=== PATIENT | female | born 2005 | race American Indian/Alaskan Native ===

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

== ENCOUNTER 2025-02-22 22:08 | Emergency (ER) | payer MEDICAID ==
[2025-02-22 22:45] LABS: BASOPHILS PERCENT AUTO 0.2 % (0.0-1.0); EOSINOPHILS PERCENT AUTO 0.5 % (1.0-3.0); HEMATOCRIT 38.1 % (37.0-47.0); HEMOGLOBIN 12.8 g/dL (12.0-16.0); LYMPHOCYTES PERCENT AUTO 23.4 % (20.5-50.1); MEAN CORPUSCULAR HEMOGLOBIN 30.3 pg (27.0-34.0); MEAN CORPUSCULAR HGB CONC 33.6 g/dL (33.0-35.0); MEAN CORPUSCULAR VOLUME 90.1 fL (80-100); MONOCYTES PERCENT AUTO 5.1 % (2-8); NEUTROPHILS PERCENT AUTO 70.8 % (42.2-75.2); PLATELET COUNT,PLT 309 10^3/uL (150-450); RED BLOOD CELL COUNT 4.23 10^6/uL (4.2-5.4); WHITE BLOOD CELL COUNT,WBC 11.2 10^3/uL (5.0-10.0)
[2025-02-22 22:54] LABS: APPEARANCE,URINE SLIGHTLY CLOUDY (CLEAR); BILIRUBIN,URINE NEGATIVE (NEGATIVE); COLOR,URINE YELLOW (YELLOW); GLUCOSE,URINE NEGATIVE (NEGATIVE); KETONES,URINE 15 (NEGATIVE); LEUKOCYTE ESTERASE,URINE NEGATIVE (NEGATIVE); NITRITE,URINE NEGATIVE (NEGATIVE); OCCULT BLOOD,URINE NEGATIVE (NEGATIVE); PH,URINE 7.5 (5.0-9.0); PROTEIN,URINE NEGATIVE (NEGATIVE); UROBILINOGEN,URINE 0.2 mg/dL (0.2-1.0)
[2025-02-22 23:05] LABS: ALBUMIN 4.1 g/dL (3.4-5.0); ANION GAP 11.9 mEq/L (7-13); BILIRUBIN TOTAL 0.3 mg/dL (0.2-1.0); BUN/CREATININE RATIO 39.5 (No establ ref range); CALCIUM 9.3 mg/dL (8.5-10.1); CREATININE 0.43 mg/dL (0.55-1.02); EST CRCL DRUG DOSING (CG) 212.28 mL/min; POTASSIUM,K 3.9 mmol/L (3.5-5.1); PROTEIN TOTAL,TP 8.1 g/dL (6.4-8.2)
[2025-02-22 23:08] LABS: LACTIC ACID 0.6 mmol/L (0.4-2.0)
[2025-02-22] MEDS: Iopamidol 612 MG/ML 100 ML Bottle IVPUSH ONE (23:38)
[2025-02-23] MEDS: Sodium Chloride 0.9% 1,000 ML IV ONE (00:27)
[2025-02-23 01:21] VITALS: BP 110/56; PULSE 86
== END 2025-02-23 01:03 | disposition home or self-care (01) ==
LOC: DL.ED 22:08
DX: R11.10 Vomiting, unspecified (principal); R10.9 Unspecified abdominal pain; I10 Essential (primary) hypertension; E10.9 Type 1 diabetes mellitus without complications; F17.210 Nicotine dependence, cigarettes, uncomplicated; Z79.4 Long term (current) use of insulin; Z79.899 Other long term (current) drug therapy
CPT/HCPCS: 36415; 74018; 74177; 80053; 81003; 81025; 83605; 83690; 85025; 96360; 99283; 99284; J7030; Q9967

== ENCOUNTER 2025-03-07 19:20 | Emergency (ER) | payer MEDICAID ==
[2025-03-07 19:44] VITALS: BP 123/80; PULSE 103
[2025-03-07 20:03] LABS: BASOPHILS PERCENT AUTO 0.2 % (0.0-1.0); HEMATOCRIT 38.1 % (37.0-47.0); HEMOGLOBIN 12.2 g/dL (12.0-16.0); LYMPHOCYTES PERCENT AUTO 34.6 % (20.5-50.1); MEAN CORPUSCULAR VOLUME 90.7 fL (80-100); MONOCYTES PERCENT AUTO 7.5 % (2-8); NEUTROPHILS PERCENT AUTO 56.7 % (42.2-75.2); PLATELET COUNT,PLT 332 10^3/uL (150-450); WHITE BLOOD CELL COUNT,WBC 8.7 10^3/uL (5.0-10.0)
[2025-03-07] MEDS: Metoclopramide 10 MG Tab PO ONE (20:10)
[2025-03-07 20:24] LABS: ALBUMIN 3.9 g/dL (3.4-5.0); ANION GAP 11.6 mEq/L (7-13); BILIRUBIN TOTAL 0.2 mg/dL (0.2-1.0); BUN/CREATININE RATIO 25.9 (No establ ref range); CALCIUM 9.8 mg/dL (8.5-10.1); CREATININE 0.58 mg/dL (0.55-1.02); EST CRCL DRUG DOSING (CG) 146.05 mL/min; POTASSIUM,K 4.6 mmol/L (3.5-5.1); PROTEIN TOTAL,TP 7.7 g/dL (6.4-8.2)
[2025-03-07 20:29] LABS: APPEARANCE,URINE CLEAR (CLEAR); BILIRUBIN,URINE NEGATIVE (NEGATIVE); COLOR,URINE YELLOW (YELLOW); GLUCOSE,URINE NEGATIVE (NEGATIVE); KETONES,URINE NEGATIVE (NEGATIVE); LEUKOCYTE ESTERASE,URINE NEGATIVE (NEGATIVE); NITRITE,URINE NEGATIVE (NEGATIVE); OCCULT BLOOD,URINE TRACE-INTACT (NEGATIVE); PROTEIN,URINE NEGATIVE (NEGATIVE); UROBILINOGEN,URINE 0.2 mg/dL (0.2-1.0)
[2025-03-07 20:33] LABS: BACTERIA,URINE MODERATE /HPF (0-FEW/HPF); EPITHELIAL CELLS,URINE FEW /HPF (NOT SEEN); RBC,URINE 0-5 /HPF (0-5); WBC,URINE 0-5 /HPF (0-5/HPF)
== END 2025-03-07 22:14 | disposition home or self-care (01) ==
LOC: DL.ED 19:20
DX: R06.6 Hiccough (principal); R11.2 Nausea with vomiting, unspecified; R10.32 Left lower quadrant pain; R10.84 Generalized abdominal pain; I10 Essential (primary) hypertension; E10.9 Type 1 diabetes mellitus without complications; Z79.4 Long term (current) use of insulin; Z79.899 Other long term (current) drug therapy
CPT/HCPCS: 36415; 74019; 80053; 81001; 81025; 83735; 85025; 99284; A9270; 99283

== ENCOUNTER 2025-05-28 13:58 | Emergency (ER) | payer MEDICAID ==
[2025-05-28] MEDS ORDERED: Sodium Chloride 0.9% 10 ML Syringe FLUSH PRN (14:10)
[2025-05-28 14:30] LABS: O2 DELIVERY DEVICE ROOM AIR
[2025-05-28 14:32] LABS: BASOPHILS PERCENT AUTO 0.2 % (0.0-1.0); EOSINOPHILS PERCENT AUTO 1.3 % (1.0-3.0); LYMPHOCYTES PERCENT AUTO 21.9 % (20.5-50.1); MONOCYTES PERCENT AUTO 5.4 % (2-8); NEUTROPHILS PERCENT AUTO 71.2 % (42.2-75.2); PLATELET COUNT,PLT 338 10^3/uL (150-450); RED BLOOD CELL COUNT 3.82 10^6/uL (4.2-5.4); WHITE BLOOD CELL COUNT,WBC 9.4 10^3/uL (5.0-10.0)
[2025-05-28 14:38] LABS: APPEARANCE,URINE CLEAR (CLEAR); GLUCOSE,URINE 500 (NEGATIVE); OCCULT BLOOD,URINE TRACE-INTACT (NEGATIVE)
[2025-05-28 14:44] LABS: BICARBONATE,VENOUS 26 mmol/l (19-25); O2 SATURATION VENOUS 83.8 % (60-80); PCO2 VENOUS 50 mmHg (41-51); PH,VENOUS 7.33 (7.31-7.41); PO2 VENOUS 56 mmHg (35-42)
[2025-05-28 14:45] LABS: BASE EXCESS VENOUS 0.2 mmol/l ((-2)-(+3))
[2025-05-28 14:48] VITALS: BP 109/72; PULSE 93
[2025-05-28 14:53] LABS: LACTIC ACID 0.8 mmol/L (0.4-2.0)
[2025-05-28 14:55] LABS: EPITHELIAL CELLS,URINE FEW /HPF (NOT SEEN)
[2025-05-28 14:56] LABS: KETONES,BLOOD NEGATIVE
[2025-05-28 15:00] LABS: ALANINE AMINOTRANSFERASE,ALT 12 U/L (14-59); ASPARTATE AMNIOTRANSFERASE,AST 9 U/L (15-37); BILIRUBIN TOTAL 0.3 mg/dL (0.2-1.0); BLOOD UREA NITROGEN,BUN 11 mg/dL (7-18); CARBON DIOXIDE,CO2 27 mmol/L (21-32); CHLORIDE,CL 97 mmol/L (98-107); CREATININE 0.60 mg/dL (0.55-1.02); POTASSIUM,K 4.0 mmol/L (3.5-5.1); PROTEIN TOTAL,TP 7.5 g/dL (6.4-8.2); SODIUM,NA 132 mmol/L (136-145)
[2025-05-28 15:02] LABS: A/G RATIO 0.74; ESTIMATED GFR 133 mL/min (>=60); ETHANOL BLOOD MEDICAL < 3 mg/dL (0); GLUCOSE RANDOM 613 mg/dL (70-99)
[2025-05-28] MEDS ORDERED: 50% Dextrose in Water 50 ML Syringe IVPUSH PRN (15:10)
[2025-05-28] MEDS: Insulin Regular, Human 100 Units/ML 10 ML Vial SUBCUT ONE (15:25)
[2025-05-28 15:38] LABS: AMPHETAMINES,URINE NEGATIVE (NEGATIVE); BARBITURATES,URINE NEGATIVE (NEGATIVE); MDMA (ECSTASY), URINE NEGATIVE (NEGATIVE); METHAMPHETAMINES,URINE NEGATIVE (NEGATIVE); OPIATES,URINE NEGATIVE (NEGATIVE); OXYCODONE,URINE NEGATIVE (NEGATIVE); PHENCYCLIDINE,URINE NEGATIVE (NEGATIVE); TCA,URINE NEGATIVE (NEGATIVE)
== END 2025-05-28 17:15 | disposition home or self-care (01) ==
LOC: DL.ED 13:58
DX: E10.65 Type 1 diabetes mellitus with hyperglycemia (principal); I10 Essential (primary) hypertension; Z79.4 Long term (current) use of insulin; Z79.899 Other long term (current) drug therapy
CPT/HCPCS: 36415; 73620; 80053; 80305; 80307; 81001; 81025; 82009; 82803; 82947; 83605; 83735; 85025; 86140; 96360; 99285; A9270; J7030